=== PATIENT | male | born 2000 | race Caucasian/White ===

== ENCOUNTER 2023-05-04 12:00 | Emergency (ER) | payer OTHER, SELFPAY ==
[2023-05-04] MEDS ORDERED: predniSONE 20 MG TAB ONE (12:38)
[2023-05-04] MEDS ORDERED: Famotidine 20 MG TAB ONE (12:39)
== END 2023-05-04 14:34 | disposition left against medical advice (07) ==
LOC: CSHERS 12:00
DX: Z53.21 Procedure and treatment not carried out due to patient leaving prior to being seen by health care provider (principal)
CPT/HCPCS: J7512